=== PATIENT | female | born 1985 | race Two or more races ===

== ENCOUNTER 2017-01-25 11:21 | Emergency (ER) | payer OTHER ==
[2017-01-25 11:56] VITALS: BP 128/82; PULSE 81; RESP 17; TEMP 98.2; O2SAT 100; BMI 23.5
--- NOTE | 2017-01-25 13:33 | ED PDOC ---
Arrival/HPI - General Chief Complaint: Shortness Of Breath Time Seen by Provider: 01/25/17 11:24 Historian: Patient - History of Present Illness Narrative History of Present Illness (Text): 01/25/17 13:30 32 yo F with PMH of asthma and pneumonia when she was a child, c/o dry cough associated with discomfort to the sternal area with taking deep breathes only. Pt reports symptoms started after she was cleaning her new apartment using bleach, and found mold in the house. Denies any fever, chills, radiation, back pain, association with exertion, SOB, trauma, injury, leg pain / swelling, recent travel. PMArturo Bahena Past Medical History - Provider Review Nursing Documentation Reviewed: Yes - Cardiac Hx Cardiac Disorders: No - Pulmonary Hx Respiratory Disorders: No - Neurological Hx Neurological Disorder: No - HEENT Hx HEENT Disorder: No - Renal Hx Renal Disorder: No - Endocrine/Metabolic Hx Endocrine Disorders: No - Hematological/Oncological Hx Blood Disorders: No - Integumentary Hx Dermatological Disorder: No - Musculoskeletal/Rheumatological Hx Musculoskeletal Disorders: No - Gastrointestinal Hx Gastrointestinal Disorders: No - Genitourinary/Gynecological Hx Genitourinary Disorders: Yes (DX: CERVICAL DYSPLASIA"I FOUND OUT A MONTH AGO ") - Psychiatric Hx Psychophysiologic Disorder: No Hx Substance Use: No - Surgical History Hx Tonsillectomy: Yes - Anesthesia Hx Anesthesia: Yes Hx Anesthesia Reactions: No Hx Malignant Hyperthermia: No Family/Social History - Physician Review Nursing Documentation Reviewed: Yes Family/Social History: No Known Family HX Smoking Status: Former Smoker Hx Alcohol Use: Yes Frequency of alcohol use: Socially Hx Substance Use: No Allergies/Home Meds Allergies/Adverse Reactions: Allergies No Known Allergies Allergy (Verified 12/31/14 12:56) Home Medications: Home Meds Medication Instructions Recorded Confirmed No Known Home Med [No Known Home 12/31/14 12/31/14 Med] Review of Systems - Review of Systems Constitutional: Normal. absent: Fatigue, Weight Change, Fevers ENT: Normal. absent: Hearing Changes, Tinnitus, Rhinorrhea, Sinus Congestion Respiratory: Normal, Cough. absent: SOB, Sputum, Wheezing Cardiovascular: Normal, Chest Pain. absent: Palpitations, Edema Musculoskeletal: Normal. absent: Arthralgias, Back Pain, Neck Pain Skin: Normal. absent: Rash, Pruritis, Skin Lesions Physical Exam Vital Signs Reviewed: Yes Vital Signs Temp Pulse Resp BP Pulse Ox 01/25/17 11:55 98.2 F 81 17 128/82 100 Temperature: Afebrile Blood Pressure: Normal Pulse: Regular Respiratory Rate: Normal Appearance: Positive for: Well-Appearing, Non-Toxic, Comfortable Pain Distress: Other (Pt is sitting comfortably in bed using her cell phone, speaking in full sentences.) Mental Status: Positive for: Alert and Oriented X 3 - Systems Exam Head: Present: Atraumatic, Normocephalic Pupils: Present: PERRL Extroacular Muscles: Present: EOMI Mouth: Present: Moist Mucous Membranes. No: Drooling, Trismus Pharnyx: Present: Normal. No: ERYTHEMA, EXUDATE Nose (External): Present: Atraumatic Nose (Internal): Present: Normal Inspection Neck: Present: Normal Range of Motion. No: MIDLINE TENDERNESS, Paraspinal Tenderness Respiratory/Chest: Present: Clear to Auscultation, Good Air Exchange. No: Respiratory Distress, Accessory Muscle Use, Wheezes, Rales, Rhonchi, Tender to Palpation Cardiovascular: Present: Regular Rate and Rhythm, Normal S1, S2. No: Murmurs Upper Extremity: Present: Normal Inspection, Normal ROM. No: Cyanosis, Edema Lower Extremity: Present: Normal Inspection, Normal ROM. No: Edema, Cyanosis Neurological: Present: GCS=15, CN II-XII Intact, Motor Func Grossly Intact, Normal Sensory Function Skin: Present: Warm, Dry, Normal Color. No: Rashes Psychiatric: Present: Alert, Oriented x 3 Medical Decision Making ED Course and Treatment: 01/25/17 13:34 32 yo F with PMH of asthma and pneumonia when she was a child, c/o dry cough associated with discomfort to the sternal area with taking deep breathes only after exposure to bleach and mold in her house. Based on history and exam : to consider bronchospasm, asthma, to r/o PNA Plan: - CXR - cg [facility] [place] (-) CXR: NAD, as read by PA. On re-evaluation, pt is resting comfortably in bed in no acute distress. Speaking in full sentences, breathing easy and unlabored. XR results d/w the pt in great detail. Pt advised to avoid exposure to bleach and mold as her symptoms may have been attributed to air way irritation of both. Advised to f/u with her pmd in 1-2 day for re-evaluation. Otherwise to return to the ER at any time for any new or worsening symptoms. - RAD Interpretation Radiology Orders: 01/25/17 12:15 CHEST TWO VIEWS (PA/LAT) [RAD] Stat - PA / GENERAL MACHINIST / Resident Statement MD/DO has reviewed & agrees with the documentation as recorded. Disposition/Present on Arrival - Present on Arrival Any Indicators Present on Arrival: No History of DVT/PE: No History of Uncontrolled Diabetes: No Urinary Catheter: No History of Decub. Ulcer: No History Surgical Site Infection Following: None - Disposition Have Diagnosis and Disposition been Completed?: Yes Diagnosis: Bronchospasm, Cough Disposition: HOME/ ROUTINE Disposition Time: 13:00 Patient Plan: Discharge Condition: STABLE Discharge Instructions (ExitCare): Bronchospasm (ED) Print Language: GERMAN Additional Instructions: Follow up with your pmd in 2 days for re-evaluation. Return to the ER at any time for any new or worsening symptoms. Referrals: PCP,NO [Primary Care Provider] - Follow up with primary Forms: WORK NOTE
--- NOTE | 2017-01-25 14:41 | RAD ---
HISTORY: pain, cough COMPARISON: No prior. TECHNIQUE: Chest PA and lateral FINDINGS: LUNGS: No active pulmonary disease. PLEURA: No significant pleural effusion identified. No pneumothorax apparent. CARDIOVASCULAR: Normal. OSSEOUS STRUCTURES: No significant abnormalities. VISUALIZED UPPER ABDOMEN: Normal. OTHER FINDINGS: None. IMPRESSION: No active disease.
== END 2017-01-25 13:50 | disposition home or self-care (01) ==
LOC: ED 11:21
DX: J98.01 Acute bronchospasm (principal); R05 Cough